=== PATIENT | male | born 1955 | race Caucasian/White ===

== ENCOUNTER 2016-10-05 14:17 | Emergency (ER) | payer OTHER ==
[~2016-10-05 14:17] MED LIST: COLCHICINE; PRINIVIL5 MG; ZYLOPRIM
== END 2016-10-05 14:51 | disposition home or self-care (01) ==
LOC: SED 14:17
DX: M10.9 Gout, unspecified (principal); I10 Essential (primary) hypertension
CPT/HCPCS: 99283